=== PATIENT | female | born 1990 | race Hispanic/Latino ===

== ENCOUNTER 2017-04-23 18:41 | Emergency (ER) | payer OTHER, BC ==
[2017-04-23 18:50] VITALS: BP 125/75; PULSE 93; RESP 16; TEMP 99.4; O2SAT 100
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
== END 2017-04-23 19:31 | disposition home or self-care (01) ==
LOC: H.ER 18:41
DX: S09.90XA Unspecified injury of head, initial encounter (principal); V43.52XA Car driver injured in collision with other type car in traffic accident, initial encounter; Y92.410 Unspecified street and highway as the place of occurrence of the external cause; F45.21 Hypochondriasis